=== PATIENT | female | born 1970 | race American Indian/Alaskan Native ===

== ENCOUNTER 2021-04-03 10:04 | Emergency (ER) | payer MEDICAID ==
[~2021-04-03] VITALS: Ht 162.6 cm; Wt 118.2 kg
[2021-04-03 10:07] VITALS: BP 147/80
[2021-04-03] MEDS: DEXAMETHASONE 4 MG TABLET PO ONE (12:48)
[2021-04-03] MEDS: DiphenhydrAMINE HCL 25 MG CAPSULE PO ONE (12:48)
[2021-04-03] MEDS: FAMOTIDINE 20 MG TABLET PO ONE (12:48)
== END 2021-04-03 12:57 | disposition home or self-care (01) ==
LOC: EMS 10:04
DX: L50.9 Urticaria, unspecified (principal); Z88.1 Allergy status to other antibiotic agents; Z88.8 Allergy status to other drugs, medicaments and biological substances
CPT/HCPCS: 99284; J8540; Z7502; Z7610

== ENCOUNTER 2021-04-06 11:03 | Emergency (ER) | payer OTHER ==
[~2021-04-06] VITALS: Ht 162.6 cm; Wt 118.2 kg
[2021-04-06 11:05] VITALS: BP 152/87
== END 2021-04-06 12:46 | disposition home or self-care (01) ==
LOC: EMS 11:03
DX: L50.9 Urticaria, unspecified (principal); Z88.1 Allergy status to other antibiotic agents; Z88.8 Allergy status to other drugs, medicaments and biological substances
CPT/HCPCS: 99283; Z7502